=== PATIENT | male | born 1965 | race Caucasian/White ===

== ENCOUNTER 2020-06-11 07:49 | Day surgery (SDC) | payer BC ==
[~2020-06-11] VITALS: Ht 172.7 cm; Wt 86.1 kg
[~2020-06-11 07:49] MED LIST: LISINOPRIL-HCT1 EACH PO
--- NOTE | 2020-06-11 08:58 | NUR ---
06/11/20 0858 Karen Peterson V PT RESTING COMFORTABLY IN BED, STATES HE DOES NOT NEED ANYTHING AT THIS TIME. PT INFORMED WE ARE CURRENTLY WAITING ON TO ARRIVE. P WAS CALLED IN EARLY BY CHARGE NURSE FOR AN EARLIER START TIME BUT D/T MISSCOMMUNICATION AND ERROR ON SHCEDULE WON'T ARRIVE EARLIER.
--- NOTE | 2020-06-11 10:14 | NUR ---
06/11/20 1014 [place] [employer]ICR[employer]HA AND H[employer] FIB[employer] PAMPHLETS PROVIDED
== END 2020-06-11 09:49 | disposition home or self-care (01) ==
LOC: ORSCSDS 07:49
PROVIDERS: Internal Medicine Gastroenterology
PROC: 0DBL8ZX Excision of Transverse Colon, Via Natural or Artificial Opening Endoscopic, Diagnostic (ICD-10-PCS; principal; 2020-06-11 09:15)
PROC: 0DBN8ZX Excision of Sigmoid Colon, Via Natural or Artificial Opening Endoscopic, Diagnostic (ICD-10-PCS; principal; 2020-06-11 09:15)
DX: Z12.11 Encounter for screening for malignant neoplasm of colon (principal); D12.3 Benign neoplasm of transverse colon; K63.5 Polyp of colon; I10 Essential (primary) hypertension; K64.8 Other hemorrhoids; F41.9 Anxiety disorder, unspecified; K57.30 Diverticulosis of large intestine without perforation or abscess without bleeding; Z79.899 Other long term (current) drug therapy
CPT/HCPCS: 88305; J2704; J7120